=== PATIENT | female | born 1975 | race Caucasian/White ===

== ENCOUNTER → 2017-01-14 | Outpatient (CLI) | payer OTHER | LOC: COL.RAD 08:46 | DX: M48.02 Spinal stenosis, cervical region (principal); S46.012A Strain of muscle(s) and tendon(s) of the rotator cuff of left shoulder, initial encounter; M75.82 Other shoulder lesions, left shoulder; M75.22 Bicipital tendinitis, left shoulder; M19.012 Primary osteoarthritis, left shoulder; M25.712 Osteophyte, left shoulder ==

== ENCOUNTER 2017-02-21 11:00 | Outpatient (RCR) | payer OTHER | END 2017-02-21 14:09 | disposition still patient (30) | LOC: MKS.ESL.PT 11:00 | DX: S46.011D Strain of muscle(s) and tendon(s) of the rotator cuff of right shoulder, subsequent encounter (principal); R53.1 Weakness; W17.89XD Other fall from one level to another, subsequent encounter ==

== ENCOUNTER → 2017-04-21 | Outpatient (CLI) | payer OTHER | LOC: ZCOL.LAB 16:27 | DX: Z01.812 Encounter for preprocedural laboratory examination (principal); Z86.14 Personal history of Methicillin resistant Staphylococcus aureus infection ==

== ENCOUNTER 2017-05-12 10:20 | Outpatient (RCR) | payer OTHER | END 2017-05-18 15:08 | disposition home or self-care (01) | LOC: MKS.ESL.PT 10:20 | DX: Z01.818 Encounter for other preprocedural examination (principal); M75.102 Unspecified rotator cuff tear or rupture of left shoulder, not specified as traumatic ==

== ENCOUNTER 2017-06-30 09:00 | Outpatient (RCR) | payer OTHER | END 2017-08-18 | disposition home or self-care (01) | LOC: MKS.ESL.PT | DX: Z47.89 Encounter for other orthopedic aftercare (principal); Z98.890 Other specified postprocedural states | CPT/HCPCS: G0283-GP ==